=== PATIENT | female | born 1985 | race Two or more races ===

== ENCOUNTER → 2017-10-04 | Outpatient (CLI) | payer MEDICAID ==
[~2017-10-04] MED LIST: PREN-129 PO
[2017-10-04 17:07] LABS: Basophils # (auto) 0 uL; Basophils % (auto) 0.2 % (0.0-2.0); Eosinophils # (auto) 0 uL; Eosinophils % (auto) 0.3 % (0.0-7.0); Hematocrit 36.1 % (36.0-46.0); Hemoglobin 12.1 g/dL (12.2-16.2); Lymphocytes # (auto) 1.6 uL; Lymphocytes % (auto) 16.7 % (10.0-50.0); Mean Corpuscular Hemoglobin 29.3 pg (28.0-32.0); Mean Corpuscular Hgb Conc. 33.6 g/dL (32.0-36.0); Mean Corpuscular Volume 87.4 fL (80.0-100.0); Monocytes # (auto) 0.4 uL; Monocytes % (auto) 4.6 % (0.0-12.0); Neutrophils # (auto) 7.6 uL; Neutrophils % (auto) 78.2 % (37.0-80.0); Nucleated Red Blood Cells % 0.1 %; Platelet Count (auto) 259 10^3/uL (140-450); Red Blood Cells 4.13 10^6/uL (4.0-5.20); Red Cell Distribution Width 13.4 % (11.8-14.3); White Blood Cell 9.7 10^3/uL (4.4-10.8)
== END | disposition home or self-care (01) ==
LOC: LAB 15:55
PROVIDERS: ATTEND Obstetrics & Gynecology
DX: O23.599 Infection of other part of genital tract in pregnancy, unspecified trimester (principal); Z3A.00 Weeks of gestation of pregnancy not specified
CPT/HCPCS: 36415; 85025; 87086

== ENCOUNTER 2017-10-06 18:18 | Observation (INO) | payer MEDICAID ==
[2017-10-06] MEDS ORDERED: PREN-129 PO (19:21)
[2017-10-06 20:48] LABS: Alcohol, Urine < 3.0 mg/dL (0-5); Amphetamine Screen, Urine NEGATIVE (NEGATIVE); Barbiturate Scree,Urine NEGATIVE (NEGATIVE); Benzodiazephine Screen, Urine NEGATIVE (NEGATIVE); Cannabinoid Screen, Urine NEGATIVE (NEGATIVE); Cocaine Screen, Urine NEGATIVE (NEGATIVE); Opiate Scree,Urine NEGATIVE (NEGATIVE); Phencyclidine Screen, Urine NEGATIVE (NEGATIVE)
[2017-10-06 21:10] LABS: Urine Bacteria NONE SEEN /hpf (None Seen); Urine Blood Negative /uL (Negative); Urine Specific Gravity 1.001 (1.001-1.035); Urine WBC 1 /hpf (0 - 5)
== END 2017-10-06 21:26 | disposition home or self-care (01) | DRG 566 ==
LOC: LDRP 18:18
PROVIDERS: ADMIT Obstetrics & Gynecology; ATTEND Obstetrics & Gynecology
DX: O26.892 Other specified pregnancy related conditions, second trimester (principal); R10.9 Unspecified abdominal pain; Z3A.24 24 weeks gestation of pregnancy
CPT/HCPCS: 59025; 76815; 76817; 80307; 81001; G0378

== ENCOUNTER → 2017-10-25 | Outpatient (CLI) | payer MEDICAID ==
[2017-10-25 08:34] LABS: Basophils # (auto) 0 uL; Basophils % (auto) 0.3 % (0.0-2.0); Eosinophils # (auto) 0 uL; Eosinophils % (auto) 0.5 % (0.0-7.0); Hematocrit 37.6 % (36.0-46.0); Hemoglobin 12.6 g/dL (12.2-16.2); Lymphocytes # (auto) 1.8 uL; Lymphocytes % (auto) 20.6 % (10.0-50.0); Mean Corpuscular Hgb Conc. 33.5 g/dL (32.0-36.0); Mean Corpuscular Volume 86.5 fL (80.0-100.0); Monocytes # (auto) 0.4 uL; Monocytes % (auto) 4.4 % (0.0-12.0); Neutrophils # (auto) 6.4 uL; Neutrophils % (auto) 74.2 % (37.0-80.0); Platelet Count (auto) 251 10^3/uL (140-450); Red Blood Cells 4.34 10^6/uL (4.0-5.20); Red Cell Distribution Width 13.4 % (11.8-14.3); White Blood Cell 8.6 10^3/uL (4.4-10.8)
== END | disposition home or self-care (01) ==
LOC: LAB 08:16
PROVIDERS: ATTEND Obstetrics & Gynecology
DX: O99.810 Abnormal glucose complicating pregnancy (principal); Z3A.00 Weeks of gestation of pregnancy not specified
CPT/HCPCS: 36415; 82951; 85025

== ENCOUNTER → 2017-12-22 | Outpatient (CLI) | payer MEDICAID ==
[2017-12-22 12:27] LABS: Basophils # (auto) 0 uL; Basophils % (auto) 0.1 % (0.0-2.0); Eosinophils # (auto) 0 uL; Eosinophils % (auto) 0.4 % (0.0-7.0); Hematocrit 38.3 % (36.0-46.0); Hemoglobin 12.8 g/dL (12.2-16.2); Lymphocytes # (auto) 1.4 uL; Mean Corpuscular Hemoglobin 29.1 pg (28.0-32.0); Mean Corpuscular Hgb Conc. 33.4 g/dL (32.0-36.0); Mean Corpuscular Volume 87.3 fL (80.0-100.0); Monocytes # (auto) 0.4 uL; Monocytes % (auto) 4.5 % (0.0-12.0); Neutrophils # (auto) 6.1 uL; Nucleated Red Blood Cells % 0.3 %; Platelet Count (auto) 238 10^3/uL (140-450); Red Blood Cells 4.39 10^6/uL (4.0-5.20); Red Cell Distribution Width 13.6 % (11.8-14.3)
== END | disposition home or self-care (01) ==
LOC: LAB 10:44
PROVIDERS: ATTEND Obstetrics & Gynecology
DX: O23.593 Infection of other part of genital tract in pregnancy, third trimester (principal); Z3A.35 35 weeks gestation of pregnancy
CPT/HCPCS: 36415; 83036; 85025; 87081

== ENCOUNTER 2018-01-03 09:55 | Observation (INO) | payer MEDICAID ==
[~2018-01-03] VITALS: Ht 180.3 cm; Wt 131.1 kg
== END 2018-01-03 10:55 | disposition home or self-care (01) | DRG 566 ==
LOC: LDRP 09:55
PROVIDERS: ADMIT Obstetrics & Gynecology; ATTEND Obstetrics & Gynecology
DX: O24.419 Gestational diabetes mellitus in pregnancy, unspecified control (principal); Z3A.37 37 weeks gestation of pregnancy
CPT/HCPCS: 59025; 81002; G0378

== ENCOUNTER 2018-01-08 10:00 | Observation (INO) | payer MEDICAID | END 2018-01-08 10:45 | disposition home or self-care (01) | DRG 566 | LOC: LDRP 10:00 | PROVIDERS: ADMIT Obstetrics & Gynecology; ATTEND Obstetrics & Gynecology | DX: O24.419 Gestational diabetes mellitus in pregnancy, unspecified control (principal); Z3A.37 37 weeks gestation of pregnancy | CPT/HCPCS: 59025; 81002; 82948; G0378 ==

== ENCOUNTER 2018-01-11 10:51 | Observation (INO) | payer MEDICAID | END 2018-01-11 12:10 | disposition home or self-care (01) | DRG 566 | LOC: LDRP 10:51 | PROVIDERS: ADMIT Specialist; ATTEND Specialist | DX: O24.410 Gestational diabetes mellitus in pregnancy, diet controlled (principal); Z3A.38 38 weeks gestation of pregnancy | CPT/HCPCS: 59025; 76818; 81002; G0378 ==

== ENCOUNTER 2018-01-15 10:01 | Observation (INO) | payer MEDICAID | END 2018-01-15 10:30 | disposition left against medical advice (07) | DRG 566 | LOC: LDRP 10:01 | PROVIDERS: ADMIT Obstetrics & Gynecology; ATTEND Obstetrics & Gynecology | DX: O24.419 Gestational diabetes mellitus in pregnancy, unspecified control (principal); Z3A.00 Weeks of gestation of pregnancy not specified | CPT/HCPCS: 59025; 76818; 81002; 82948; G0378 ==

== ENCOUNTER 2018-01-15 19:05 | Observation (INO) | payer MEDICAID | END 2018-01-15 19:58 | disposition home or self-care (01) | DRG 566 | LOC: LDRP 19:05 | PROVIDERS: ADMIT Obstetrics & Gynecology; ATTEND Obstetrics & Gynecology | DX: O24.419 Gestational diabetes mellitus in pregnancy, unspecified control (principal); O00.01 Abdominal pregnancy with intrauterine pregnancy; Z3A.38 38 weeks gestation of pregnancy | CPT/HCPCS: 82962; G0378 ==

== ENCOUNTER 2018-01-17 16:10 | Observation (INO) | payer MEDICAID | END 2018-01-17 18:10 | disposition home or self-care (01) | DRG 566 | LOC: LDRP 16:10 | PROVIDERS: ADMIT Obstetrics & Gynecology; ATTEND Obstetrics & Gynecology | DX: O24.419 Gestational diabetes mellitus in pregnancy, unspecified control (principal); O32.1XX0 Maternal care for breech presentation, not applicable or unspecified; Z3A.00 Weeks of gestation of pregnancy not specified | CPT/HCPCS: 59025; 76818; 81002; 82948; G0378 ==

== ENCOUNTER 2018-01-18 11:50 | Observation (INO) | payer MEDICAID | END 2018-01-18 13:40 | disposition home or self-care (01) | DRG 566 | LOC: LDRP 11:50 | PROVIDERS: ADMIT Specialist; ATTEND Specialist | DX: O26.893 Other specified pregnancy related conditions, third trimester (principal); O32.2XX0 Maternal care for transverse and oblique lie, not applicable or unspecified; Z3A.39 39 weeks gestation of pregnancy | CPT/HCPCS: 59025; 76815; 81002; G0378 ==

== ENCOUNTER 2018-01-24 15:05 | Observation (INO) | payer MEDICAID | END 2018-01-24 17:05 | disposition home or self-care (01) | DRG 566 | LOC: LDRP 15:05 | PROVIDERS: ADMIT Specialist; ATTEND Specialist | DX: O32.1XX0 Maternal care for breech presentation, not applicable or unspecified (principal); O24.419 Gestational diabetes mellitus in pregnancy, unspecified control; O48.0 Post-term pregnancy; Z3A.40 40 weeks gestation of pregnancy | CPT/HCPCS: 59025; 76818; 81002; G0378 ==

== ENCOUNTER 2018-01-25 08:07 | Inpatient (IN) | payer MEDICAID ==
[~2018-01-25] VITALS: Ht 175.3 cm; Wt 133.8 kg
[2018-01-25] VITALS (7 sets, daily range): BP systolic 88–149; BP diastolic 53–85
[2018-01-25 09:16] LABS: Basophils # (auto) 0 uL; Basophils % (auto) 0.4 % (0.0-2.0); Eosinophils # (auto) 0 uL; Eosinophils % (auto) 0.5 % (0.0-7.0); Hematocrit 40.3 % (36.0-46.0); Hemoglobin 13.7 g/dL (12.2-16.2); Lymphocytes # (auto) 2.1 uL; Lymphocytes % (auto) 23.7 % (10.0-50.0); Mean Corpuscular Hemoglobin 29.2 pg (28.0-32.0); Mean Corpuscular Hgb Conc. 33.9 g/dL (32.0-36.0); Mean Corpuscular Volume 86.2 fL (80.0-100.0); Monocytes # (auto) 0.5 uL; Monocytes % (auto) 5.5 % (0.0-12.0); Neutrophils # (auto) 6.3 uL; Neutrophils % (auto) 69.9 % (37.0-80.0); Nucleated Red Blood Cells % 0.1 %; Platelet Count (auto) 247 10^3/uL (140-450); Red Blood Cells 4.67 10^6/uL (4.0-5.20); White Blood Cell 9.1 10^3/uL (4.4-10.8)
[2018-01-25 09:35] LABS: INR 0.89 (0.9-1.15); Partial Thromboplastin Time 27.3 sec (23.78-33.04); Prothrombin Time 9.6 sec (9.27-12.13)
[2018-01-25 09:44] LABS: Albumin 2.9 g/dL (3.4-5.0); BUN/Creatinine Ratio 11.3; Bilirubin, Total 0.4 mg/dL (0.2-1.0); Calcium 8.9 mg/dL (8.5-10.1); Potassium 3.7 mmol/L (3.5-5.1); Total Protein 6.9 g/dL (6.4-8.2)
[2018-01-25 09:52] LABS: Urine Bacteria NONE SEEN /hpf (None Seen); Urine Blood TRACE /uL (Negative); Urine Mucus FEW (None Seen); Urine Specific Gravity 1.023 (1.001-1.035); Urine WBC 123 /hpf (0 - 5)
[2018-01-25] MEDS ORDERED: AMMONIA 0.33 ML INHALANT IN ONE (10:09)
[2018-01-25] MEDS ORDERED: ePHEDrine SULFATE 50 MG/ML AMP ONE (10:14)
[2018-01-25] MEDS ORDERED: MORPHINE SULF(PF) 0.5MG/ML 10ML VIAL ONE (10:14)
[2018-01-25] MEDS ORDERED: PHENYLEPHRINE HCL 10 MG/ML VL ONE (10:17)
[2018-01-25] MEDS ORDERED: TETRACAINE 1% INJ 2 ML VIAL IJ ONE (10:17)
[2018-01-25] MEDS ORDERED: OXYTOCIN 10 UNIT/ML 10ML VIAL ONE (10:20)
[2018-01-25] MEDS ORDERED: ceFAZolin 1GM VL ONE (10:21)
[2018-01-25] MEDS ORDERED: METOCLOPRAMIDE HCL 5MG/ml INJ 2ml VIAL ONE (10:45)
[2018-01-25] MEDS ORDERED: MIDAZOLAM HCL 1MG/1ML-2 ML VIAL ONE (10:59)
[2018-01-25] MEDS: LACT. RINGERS/OXYTOCIN 20UNITS 1,000 ML IV SCH ×2 (11:02→17:42)
[2018-01-25] MEDS ORDERED: ceFAZolin 1GM/100ML 50 ML IV SCH (11:15)
[2018-01-25] MEDS ORDERED: ONDANSETRON HCL 4 MG/2 ML VIAL IV PRN (11:15)
[2018-01-25] MEDS: ceFAZolin 1GM/100ML 50 ML IV SCH (19:00)
[2018-01-25] MEDS: KETOROLAC TROMETH 30 MG/ML 1ML VIAL IV PRN (19:00)
[2018-01-25 20:20] LABS: Basophils # (auto) 0 uL; Basophils % (auto) 0.2 % (0.0-2.0); Eosinophils # (auto) 0 uL; Eosinophils % (auto) 0.1 % (0.0-7.0); Hematocrit 34.5 % (36.0-46.0); Hemoglobin 11.8 g/dL (12.2-16.2); Lymphocytes # (auto) 1.4 uL; Lymphocytes % (auto) 14.2 % (10.0-50.0); Mean Corpuscular Hemoglobin 29.6 pg (28.0-32.0); Mean Corpuscular Hgb Conc. 34.3 g/dL (32.0-36.0); Mean Corpuscular Volume 86.5 fL (80.0-100.0); Monocytes # (auto) 0.5 uL; Monocytes % (auto) 5.4 % (0.0-12.0); Neutrophils # (auto) 8.2 uL; Neutrophils % (auto) 80.1 % (37.0-80.0); Platelet Count (auto) 207 10^3/uL (140-450); Red Blood Cells 3.99 10^6/uL (4.0-5.20); White Blood Cell 10.2 10^3/uL (4.4-10.8)
[2018-01-25] MEDS: LACTATED RINGER'S 1,000 ML IV SCH (20:25)
[2018-01-25] MEDS: MORPHINE SULFATE 8mg/ml INJ SDV IV PRN (23:52)
[2018-01-26] VITALS (10 sets, daily range): BP systolic 101–119; BP diastolic 52–78
[2018-01-26] MEDS: LACT. RINGERS/OXYTOCIN 20UNITS 1,000 ML IV SCH ×2 (00:22→07:02)
[2018-01-26] MEDS: ceFAZolin 1GM/100ML 50 ML IV SCH ×2 (02:30→10:27)
[2018-01-26] MEDS: KETOROLAC TROMETH 30 MG/ML 1ML VIAL IV PRN (03:29)
[2018-01-26] MEDS: MORPHINE SULFATE 8mg/ml INJ SDV IV PRN (06:20)
[2018-01-26 07:27] LABS: Basophils # (auto) 0 uL; Basophils % (auto) 0.2 % (0.0-2.0); Eosinophils # (auto) 0 uL; Eosinophils % (auto) 0.2 % (0.0-7.0); Hematocrit 34.3 % (36.0-46.0); Hemoglobin 11.6 g/dL (12.2-16.2); Lymphocytes # (auto) 1.4 uL; Lymphocytes % (auto) 16.5 % (10.0-50.0); Mean Corpuscular Hemoglobin 29.4 pg (28.0-32.0); Mean Corpuscular Hgb Conc. 33.9 g/dL (32.0-36.0); Mean Corpuscular Volume 86.8 fL (80.0-100.0); Monocytes # (auto) 0.5 uL; Neutrophils # (auto) 6.8 uL; Neutrophils % (auto) 77.1 % (37.0-80.0); Platelet Count (auto) 174 10^3/uL (140-450); Red Blood Cells 3.95 10^6/uL (4.0-5.20); White Blood Cell 8.8 10^3/uL (4.4-10.8)
[2018-01-26] MEDS: LACTATED RINGER'S 1,000 ML IV SCH (08:54)
[2018-01-26] MEDS ORDERED: BISACODYL 10 MG RECT SUPP PR PRN (10:30)
[2018-01-26] MEDS: DOCUSATE SOD 100 MG CAP PO SCH ×2 (10:56→22:13)
[2018-01-26] MEDS: SIMETHICONE 80 MG CHEWABLE TABLET PO SCH ×3 (10:57→22:13)
[2018-01-26] MEDS: HYDROcodone-ACET 5/325MG TAB PO PRN ×3 (10:57→22:13)
[2018-01-26] MEDS: IBUPROFEN 800 MG TAB PO PRN (15:26)
[2018-01-27] MEDS: HYDROcodone-ACET 5/325MG TAB PO PRN ×4 (02:47→20:30)
[2018-01-27 03:00] VITALS: BP 116/72
[2018-01-27 05:11] LABS: RPR Non Reactive (Non Reactive)
[2018-01-27] MEDS: SIMETHICONE 80 MG CHEWABLE TABLET PO SCH ×4 (05:53→21:42)
[2018-01-27] MEDS: IBUPROFEN 800 MG TAB PO PRN ×3 (05:53→23:00)
[2018-01-27 07:00] VITALS: BP 106/68
[2018-01-27] MEDS: DOCUSATE SOD 100 MG CAP PO SCH ×2 (09:48→21:42)
[2018-01-27] MEDS: DOCUSATE CALCIUM 240 MG CAP PO SCH (09:48)
[2018-01-27 11:05] VITALS: BP 121/72
[2018-01-27 15:05] VITALS: BP 116/79
[2018-01-27 19:00] VITALS: BP 117/63
[2018-01-27 23:00] VITALS: BP 111/70
[2018-01-28] MEDS: HYDROcodone-ACET 5/325MG TAB PO PRN (02:15)
[2018-01-28 02:31] VITALS: BP 134/81
[2018-01-28] MEDS: SIMETHICONE 80 MG CHEWABLE TABLET PO SCH (05:56)
[2018-01-28 07:15] VITALS: BP 112/63
[2018-01-28] MEDS: IBUPROFEN 800 MG TAB PO PRN (08:15)
[2018-01-28] MEDS: DOCUSATE SOD 100 MG CAP PO SCH (10:11)
[2018-01-28] MEDS: DOCUSATE CALCIUM 240 MG CAP PO SCH (10:11)
[2018-01-28 11:10] VITALS: BP 127/86
[2018-01-28 12:26] VITALS: BP 127/86
== END 2018-01-28 11:20 | disposition home or self-care (01) | DRG 540 ==
LOC: LDRP 08:07
PROVIDERS: ADMIT Obstetrics & Gynecology; ATTEND Obstetrics & Gynecology
PROC: 10D00Z1 Extraction of Products of Conception, Low, Open Approach (ICD-10-PCS; principal; 2018-01-25 10:28)
DX: O32.1XX0 Maternal care for breech presentation, not applicable or unspecified (principal); Z37.0 Single live birth; Z3A.40 40 weeks gestation of pregnancy; Z90.89 Acquired absence of other organs
CPT/HCPCS: 36415; 51702; 59025; 76818; 80053; 81001; 82948; 82962; 85025; 85610; 85730; 86592; 86850; 86900; 86901; 96361; 96365; 96366; 96374; J0690; J1885; J2250; J2270; J2590